=== PATIENT | female | born 1945 | race Caucasian/White ===

== ENCOUNTER 2020-11-15 17:13 | Emergency (ER) | payer MEDICARE, MEDICAID ==
[~2020-11-15] VITALS: Ht 167.6 cm; Wt 77.3 kg
[2020-11-15 17:16] VITALS: TEMP 97.6
[2020-11-15] MEDS ORDERED: PEPCID 20MG TAB20 MG PO (17:41)
[2020-11-15] MEDS ORDERED: PROTONIX 40MG T40 MG PO (17:43)
[2020-11-15] MEDS ORDERED: MIRALAX PA17 GM/Dose PO ×2 (17:46→17:55)
[2020-11-15] MEDS ORDERED: VENLAFAXINE225 MG PO (17:47)
[2020-11-15] MEDS ORDERED: COLACE 100100 MG/CAP PO (17:48)
[2020-11-15] MEDS ORDERED: ELIQUIS 5MG PO (17:48)
[2020-11-15] MEDS ORDERED: CRANBERRY250 MG PO (17:49)
[2020-11-15] MEDS ORDERED: NAMENDA 10MG TA10 MG PO (17:50)
[2020-11-15] MEDS ORDERED: ZYPREXA7.5 MG PO (17:51)
[2020-11-15] MEDS ORDERED: TYLENOL 325MG325 MG PO ×3 (17:51→17:54)
[2020-11-15] MEDS ORDERED: DULCOLAX S10 MG/SUPP RC (17:52)
[2020-11-15] MEDS ORDERED: [UNRECOGNIZED DRUG - OTHER] RC (17:53)
[2020-11-15] MEDS ORDERED: GOOD SENSE400 MG/5 M RC (17:53)
[2020-11-15 18:26] LABS: INR 1.3 (0.8-3.0); PROTHROMBIN TIME 14.5 SECONDS (9.7-12.8)
[2020-11-15 18:29] LABS: BASO % 0.7 % (0.0-2.0); EOS # 0.1 (0.0-0.7); GRAN # 2.6 (1.4-6.5); HEMOGLOBIN 10.9 g/dl (12.5-16.0); LYMPH # 2.2 (1.2-3.4); LYMPH % 41.1 % (20.0-51.0); MEAN CELL VOLUME 86 fl (80.0-100.0); MEAN CORPUSCULAR HEMOGLOBIN 26 pg (27.0-31.0); MEAN CORPUSCULAR HGB CONC 31 g/dl (33.0-37.0); MONO # 0.5 (0.1-0.6); PLATELET COUNT 333 K/mm3 (130-400); RED BLOOD COUNT 4.16 M/mm3 (4.10-5.30); REDCELL DISTRIBUTION WIDTH-CV 18.7 % (11.5-14.5)
[2020-11-15 18:34] LABS: ALANINE AMINOTRANSFERASE 13 U/L (4-34); ALBUMIN 3.8 gm/dL (3.5-5.0); ALKALINE PHOSPHATASE 97 U/L (50-136); ANION GAP 4 mmol/L (7-16); AST,SGOT 25 U/L (15-37); BILIRUBIN,TOTAL 0.4 mg/dL (0.0-1.0); BLOOD UREA NITROGEN 15 mg/dL (7-17); CALCIUM 9.1 mg/dL (8.4-10.2); CARBON DIOXIDE 25 mmol/L (22-30); CHLORIDE 109 mmol/L (98-107); CREATININE, serum 0.65 (0.52-1.25); GLUCOSE 92 mg/dL (74-106); POTASSIUM 4.1 mmol/L (3.4-5.0); SODIUM 139 mmol/L (137-145); TOTAL PROTEIN 6.8 gm/dL (6.4-8.2)
[2020-11-15 18:37] LABS: COLLECTION METHOD CATHETER
[2020-11-15 18:43] LABS: PH 7 (5-8); SQUAMOUS EPITHELIAL None Seen /hpf; URINE APPEARANCE Clear; URINE BACTERIA None Seen /hpf; URINE BILIRUBIN Negative (NEGATIVE); URINE BLOOD Negative (NEGATIVE); URINE COLOR Yellow; URINE GLUCOSE Negative (NEGATIVE); URINE KETONE Negative (NEGATIVE); URINE LEUKOCYTE ESTERASE Negative (NEGATIVE); URINE NITRATE Negative (NEGATIVE); URINE PROTEIN(semi-quant) Negative (NEGATIVE); URINE RBC 0-2 /hpf; URINE UROBILINOGEN Negative (NEGATIVE)
[2020-11-15 18:45] LABS: HEMATOCRIT 35.7 % (37.0-47.0)
[2020-11-15 19:09] LABS: TROPONIN-I < 0.012 ng/mL (0.000-0.035)
[2020-11-15] MEDS ORDERED: KEPPRA 500MG500 MG PO (19:43)
[2020-11-15 21:11] VITALS: BP 154/81; PULSE 91
== END 2020-11-15 20:58 | disposition home or self-care (01) ==
LOC: COL.ER 17:13
PROVIDERS: Emergency Medicine
DX: R41.82 Altered mental status, unspecified (principal); F41.1 Generalized anxiety disorder; I25.2 Old myocardial infarction; F20.9 Schizophrenia, unspecified; F03.90 Unspecified dementia, unspecified severity, without behavioral disturbance, psychotic disturbance, mood disturbance, and anxiety; Z79.01 Long term (current) use of anticoagulants; Z20.822 Contact with and (suspected) exposure to COVID-19
CPT/HCPCS: J1953

== ENCOUNTER → 2020-12-09 | Outpatient (CLI) | payer MEDICARE, MEDICAID ==
[~2020-12-09] MED LIST: COLACE 100100 MG/CAP PO; CRANBERRY250 MG PO; DULCOLAX S10 MG/SUPP RC; ELIQUIS 5MG PO; GOOD SENSE400 MG/5 M RC; KEPPRA 500MG500 MG PO; MIRALAX PA17 GM/Dose PO; NAMENDA 10MG TA10 MG PO; PEPCID 20MG TAB20 MG PO; PROTONIX 40MG T40 MG PO; TYLENOL 325MG325 MG PO; VENLAFAXINE225 MG PO; ZYPREXA7.5 MG PO; [UNRECOGNIZED DRUG - OTHER] RC
== END ==
LOC: COL.RAD 13:30
DX: R25.2 Cramp and spasm (principal); R53.1 Weakness; R41.82 Altered mental status, unspecified